=== PATIENT | female | born 1950 | race Caucasian/White ===

== ENCOUNTER 2018-11-21 18:37 | Inpatient (IN) | payer BC ==
[~2018-11-21] VITALS: Ht 165.1 cm; Wt 65.8 kg
[2018-11-21 18:41] VITALS: BP_SYST 97
[2018-11-21 19:05] LABS: BASOPHILS % (AUTO) 0.4 % (0.0-2.0); EOSINOPHILS % (AUTO) 0.2 % (0.0-4.0); HEMATOCRIT 38.9 % (36-48); HEMOGLOBIN 12.9 g/dL (12.0-16.0); LYMPHOCYTES # (AUTO) 0.6 K/uL (1.0-5.5); LYMPHOCYTES % (AUTO) 5.4 % (20.5-51.5); MEAN CORPUSCULAR HEMOGLOBIN 30 pg (27-31); MEAN CORPUSCULAR HGB CONC 33 % (32-36); MEAN CORPUSCULAR VOLUME 91 fL (79.0-98.0); MONOCYTES # (AUTO) 0.6 K/uL (0.0-1.0); MONOCYTES % (AUTO) 5.6 % (1.7-9.3); NEUTROPHILS # (AUTO) 10.2 K/uL (1.8-7.7); NEUTROPHILS % (AUTO) 88.4 % (40.0-70.0); PLATELET COUNT (AUTO) 346 K/uL (130-430); RED BLOOD CELL COUNT(AUTO) 4.25 MIL/uL (4.2-6.2); RED CELL DISTRIBUTION WIDTH 13.6 % (9.0-15.0); WHITE BLOOD COUNT (AUTO) 11.6 K/uL (4.8-10.8)
[2018-11-21 19:15] LABS: ANION GAP 11 (5-15); CALCIUM 9.2 mg/dL (8.4-11.0); CHLORIDE 103 mmol/L (98-107); CREATININE 0.91 mg/dL (0.55-1.30); GLUCOSE 162 mg/dL (70-99); POTASSIUM 3.4 mmol/L (3.5-5.1); SODIUM SERUM 139 mmol/L (136-145); UREA NITROGEN, BLOOD 19 mg/dL (8-21)
[2018-11-21] MEDS ORDERED: NACL 0.9% 1,000 ML IV ONE (19:15)
[2018-11-21 19:17] LABS: GFR AFRICAN AMERICAN 80 mL/min (>90)
[2018-11-21 19:21] LABS: ALANINE AMINOTRANSFERASE 21 U/L (12-78); ALBUMIN 3.8 g/dL (3.4-4.8); ASPARTATE AMINOTRANSFERASE 16 U/L (10-37)
[2018-11-21 19:22] LABS: ACETAMINOPHEN < 1 ug/mL (1-30); ALCOHOL, BLOOD < 3 mg/dL (<10)
[2018-11-21 20:15] LABS: BILIRUBIN,URINE NEGATIVE (NEGATIVE); BLOOD, URINE NEGATIVE (NEGATIVE); CLARITY/URINE CLEAR (CLEAR); COLOR,URINE YELLOW (YELLOW); GLUCOSE,URINE NEGATIVE (NEGATIVE); KETONES,URINE TRACE (NEGATIVE); LEUKOCYTE ESTERASE ,URINE NEGATIVE (NEGATIVE); NITRITE, URINE NEGATIVE (NEGATIVE); PH,URINE 5.5 (5.0-8.0); PROTEIN URINE NEGATIVE (NEGATIVE); UROBILINOGEN,URINE 0.2 (0.2-1.0)
[2018-11-21 20:23] LABS: BARBITURATE, URINE NEGATIVE (NEG <=200); BENZODIAZEPINE, URINE POSITIVE (NEG <=150); CANNABINOID, URINE NEGATIVE (NEG <=50); COCAINE, URINE NEGATIVE (NEG <=150); METHAMPHETAMINES SCREEN,URINE NEGATIVE (NEG <=500); OPIATE, URINE NEGATIVE (NEG <=100); PHENCYCLIDINE SCREEN,URINE NEGATIVE (NEG <=25); UR TRICYCLIC ANTIDEPRESSANTS POSITIVE (NEG <=300); URINE AMPHETAMINE NEGATIVE (NEG <=500); URINE METHADONE NEGATIVE (NEG <=200); URINE OXYCODONE SCREEN NEGATIVE (NEG <=100); URINE PROPOXYPHENE SCREEN NEGATIVE (NEG <=300)
[2018-11-21] MEDS ORDERED: FLUMAZENIL 0.1 MG/ML IVP ONE (20:30)
[2018-11-21] MEDS ORDERED: PROP20TA7 PO (22:13)
[2018-11-21] MEDS ORDERED: MIRT30TA7 PO (22:14)
[2018-11-21] MEDS ORDERED: THOR25 PO (22:15)
[2018-11-21] MEDS ORDERED: GABA-531 PO (22:15)
[2018-11-21] MEDS ORDERED: AMLO5TAB4 PO (22:16)
[2018-11-21] MEDS ORDERED: THIA100T70 PO (22:16)
[2018-11-21] MEDS ORDERED: FOLI-43 PO (22:17)
[2018-11-21] MEDS ORDERED: MULT-1117 (22:18)
[2018-11-21 23:28] VITALS: BP_SYST 137
[2018-11-22] VITALS (24 sets, daily range): BP systolic 90–164
[2018-11-22] MEDS: D5/0.45 NS 1,000 ML IV SCH ×2 (00:17→13:51)
[2018-11-22] MEDS ORDERED: POTASSIUM CHLORIDE 20 MEQ/PKT PACKET PO ONE (13:30)
[2018-11-23] VITALS (19 sets, daily range): BP systolic 132–183
[2018-11-23] MEDS: D5/0.45 NS 1,000 ML IV SCH ×2 (03:21→15:47)
[2018-11-23] MEDS ORDERED: DOXEPINE (SINEQUAN) 25 MG CAP PO SCH ×2 (21:00)
[2018-11-23] MEDS ORDERED: TOPIRAMATE 100 MG TABLET(Topamax) PO ONE (21:00)
[2018-11-23] MEDS ORDERED: TOPIRAMATE 25 MG TABLET(TOPAMAX) PO SCH (21:00)
[2018-11-24 07:27] VITALS: BP_SYST 151
[2018-11-24 12:06] VITALS: BP_SYST 142
[2018-11-24 14:43] VITALS: BP_SYST 140; BP_SYST 142
[2018-11-24] MEDS ORDERED: SIN25 PO (14:56)
[2018-11-24] MEDS ORDERED: TOP25 PO (14:57)
[2018-11-24 16:24] VITALS: BP_SYST 140
[2018-11-24 19:38] VITALS: BP_SYST 143
== END 2018-11-24 19:54 | DRG 918 ==
LOC: SED 18:37 → SIC 22:45 → SMU 11-23 20:36
PROVIDERS: ADMIT Internal Medicine; ATTEND Internal Medicine Hospice and Palliative Medicine
DX: T42.6X2A Poisoning by other antiepileptic and sedative-hypnotic drugs, intentional self-harm, initial encounter (principal); F32.9 Major depressive disorder, single episode, unspecified; F41.9 Anxiety disorder, unspecified; T43.022A Poisoning by tetracyclic antidepressants, intentional self-harm, initial encounter; Z88.0 Allergy status to penicillin; Z79.899 Other long term (current) drug therapy; Y92.89 Other specified places as the place of occurrence of the external cause
CPT/HCPCS: 36415; 71045; 80053; 80307; 81003; 82550-TC; 85025; 87081; 93005; 96361; 96374; 99285; G0480; G0481; G0482; J3490